=== PATIENT | male | born 1975 | race African-American/Black ===

== ENCOUNTER 2021-03-06 20:00 | Emergency (ER) | payer BC ==
[~2021-03-06] VITALS: Ht 185.4 cm; Wt 83.9 kg
[2021-03-06] MEDS ORDERED: DOXYCYCLINE 10100 MG PO (21:13)
[2021-03-06 21:20] VITALS: BP 135/80
== END 2021-03-06 21:20 | disposition home or self-care (01) ==
LOC: ER 20:00
DX: L02.511 Cutaneous abscess of right hand (principal)